=== PATIENT | female | born 1950 | race Caucasian/White ===

== ENCOUNTER 2018-12-01 11:30 | Emergency (ER) | payer OTHER ==
[2018-12-01 11:35] VITALS: TEMP 98.4; BMI 24.0
--- NOTE | 2018-12-01 11:50 | PDOC ---
History of Present Illness - General Chief Complaint: CVA/TIA Stated Complaint: NUMBNESS LEFT FACE, HEAVINESS LEFT ARM Time Seen by Provider: 12/01/18 11:48 - History of Present Illness Initial Comments: 12/01/18 12:10 Chief complaint: Numbness in the left face History of present illness: Two prior episodes of left facial numbness earlier in the week, with recurrence today while visiting the grave of her recently . The other episodes were associated with emotional upset as well. Each resolved after only a few minutes. However, today subsequent to the episode she felt some transient numbness in the left arm, which prompted her to seek medical attention.. Review of systems: Denies chest pain, shortness of breath, abdominal pain, nausea, vomiting, diarrhea, visual symptoms, noticeable weakness, or unsteadiness of gait. Remainder systems reviewed and negative Past medical history: Healthy female, cholecystectomy in the past, but otherwise no active medical or surgical problems. No medications. Specifically, denies diabetes, elevated cholesterol, or high blood pressure Social history: Retired schoolteacher, still teaches as a substitute, 2 glasses of wine a day, no tobacco, no drugs. Fully active and without disability, although her recently and she has been somewhat anxious and upset for several months, and was celebrating an anniversary today at his [facility] site with her family. Family history: Mother with minor CVA at age 62, resolved, when onto from Alzheimer's. No cardiac disease, [place], diabetes, or cancer Physical exam: Alert and oriented well-developed well-nourished no acute distress cheerful and cooperative, however she appears somewhat anxious and tearful, especially when talking about her . Afebrile, vital signs normal PERRLA 4 mm, fundi benign, ENT clear Neck supple without bruit mass or nodes Chest clear CV regular without murmur rub or gallop Abdomen benign Extremities no CCE Skin clear, no rash, adequate turgor and wet mucous membranes Neurological C2 to 12 intact. Strength full and symmetric. No demonstrable sensory or motor deficits. Cerebellum intact. Gait stable and unimpaired. Symptoms of numbness have resolved completely. Impression: Anxiety, Hyperventilation. Less likely atypical migraine or TIA. No real risk factors for vaso-occlusive disease Plan: CBC and chemistries, EKG, chest x-ray, and CT. Further evaluation and treatment depending on results. 12/01/18 14:34 Past History - Past Medical History Allergies/Adverse Reactions: Allergies Allergy/AdvReac Type Severity Reaction Status Date / Time No Known Allergies Allergy Verified 12/01/18 11:32 Home Medications: Ambulatory Orders Multivitamin [Multiple Vitamins] 1 each PO DAILY 12/01/18 COPD: No - Surgical History Cholecystectomy: Yes - Suicide/Smoking/Psychosocial Hx Smoking History: Never smoked Have you smoked in the past 12 months: No Information on smoking cessation initiated: No Hx Alcohol Use: No *Physical Exam - Vital Signs Last Vital Signs Temp Pulse Resp BP Pulse Ox 98.4 F 73 18 137/94 97 12/01/18 11:30 12/01/18 11:30 12/01/18 11:30 12/01/18 11:30 12/01/18 11:30 *DC/Admit/Observation/Transfer Diagnosis at time of Disposition: Anxiety - Discharge Dispostion Disposition: HOME Condition at time of disposition: Improved Decision to Admit order: No - Referrals - Patient Instructions Printed Discharge Instructions: Relaxation Therapies (Alternative Therapy), DI for Anxiety -- Adult, DI for Hyperventilation Additional Instructions: Rest, observation by family tonight. Although it is most likely that your symptoms are caused by underlying emotional upset, and the tests that have been done in the emergency room are normal, there is always a small chance that something can be missed and you should return to the ER immediately if symptoms recur or further symptoms develop for additional evaluation and treatment. You should see primary physician immediately upon returning home and consider further evaluation by a neurologist, best referred by your primary doctor. - Post Discharge Activity
[2018-12-01 12:19] LABS: BASO % 2.4 % (0-2.0); EOS % 4.1 % (0-4.5); HEMATOCRIT 40.2 % (32.4-45.2); HEMOGLOBIN 13.4 GM/dl (10.7-15.3); LYMPH % 34.2 % (8-40); MCH 30.7 pg (25.7-33.7); MCHC 33.3 g/dl (32.0-36.0); MEAN CELL VOLUME 92.2 fl (80-96); MEAN PLT VOLUME 8.9 fl (7.5-11.1); MONO % 7.4 % (3.8-10.2); NEUT % 51.9 % (42.8-82.8); PLATELET COUNT 300 K/MM3 (134-434); RBC 4.35 M/mm3 (3.60-5.2); RDW 12.2 % (11.6-15.6); WHITE BLOOD COUNT 5.9 K/mm3 (4.0-10.8)
[2018-12-01 12:30] LABS: ALK PHOS 51 U/L (45-117); ANION GAP 10 MMOL/L (8-16); BILIRUBIN,TOTAL 0.9 mg/dl (0.2-1); BLOOD UREA NITROGEN 14 mg/dl (7-18); CALCIUM 9.3 mg/dl (8.5-10); CHLORIDE 104 mmol/L (98-107); CO2 24 mmol/L (21-32); CREATININE 0.7 mg/dl (0.55-1.3); GLUCOSE,RANDOM 107 mg/dl (74-106); POTASSIUM 4.6 mmol/L (3.5-5.1); SGOT/AST 34 U/L (15-37); SGPT/ALT 23 U/L (13-61); SODIUM 138 mmol/L (136-145)
[2018-12-01 14:49] VITALS: BP 127/69; PULSE 64
--- NOTE | 2018-12-02 11:23 | EKG ---
Test Reason : Blood Pressure : / mmHG Vent. Rate : 064 BPM Atrial Rate : 064 BPM P-R Int : 210 ms QRS Dur : 090 ms QT Int : 420 ms P-R-T Axes : 071 073 053 degrees QTc Int : 433 ms SINUS RHYTHM WITH 1ST DEGREE A-V BLOCK OTHERWISE NORMAL ECG NO PREVIOUS ECGS AVAILABLE Confirmed by VASHTI BRADY, JIM ([id number]) on 12/02/2018 11:23:11 AM Referred By: JAMAR SANCHES Confirmed By:JIM KINGSTON MD
== END 2018-12-01 14:50 | disposition home or self-care (01) ==
LOC: FER 11:30
DX: F41.9 Anxiety disorder, unspecified (principal)
CPT/HCPCS: 36415; 70450-TC; 71045-TC-FY; 80053; 82550; 84484; 85025; 93005; 99285-25